=== PATIENT | female | born 1990 | race Caucasian/White ===

== ENCOUNTER 2017-02-22 15:11 | Emergency (ER) | payer BC, OTHER ==
--- NOTE | 2017-02-22 16:19 | EDM.PDOC ---
ED HISTORY OF PRESENT ILLNESS - General Chief Complaint: Respiratory Problem Stated Complaint: COUGHING Time Seen by Provider: 02/22/17 16:10 - History of Present Illness INITIAL COMMENTS - FREE TEXT/NARRATIVE: HISTORY AND PHYSICAL: History of present illness: Patient is a 26 y/o female with a history of asthma but rarely uses her inhaler presents with not feeling well and since she had a tooth extracted a week ago and complaining of dry cough spastic cough occasional wheezing sore throat and sinus congestion. She did not get her influenza shot this year and she does not have chest pain or shortness of breath but complains of some body aches especially with the coughing. No vomiting or diarrhea and no abdominal pain. Review of systems: As per history of present illness and below otherwise all systems reviewed and negative. Past medical history: As per history of present illness and as reviewed below otherwise noncontributory. Surgical history: As per history of present illness and as reviewed below otherwise noncontributory. Social history: No reported history of drug or alcohol abuse. Family history: As per history of present illness and as reviewed below otherwise noncontributory. Physical exam: General: Well-developed well-nourished female is nontoxic but has nasal quality to voice HEENT: Atraumatic, normocephalic, pupils reactive, negative for conjunctival pallor or scleral icterus, mucous membranes moist, throat clear there is no tonsillar swelling or exudate but there is posterior oropharyngeal erythema there is no cervical adenopathy or nuchal rigidity, neck supple, nontender, trachea midline. Lungs: Clear to auscultation, breath sounds equal bilaterally, chest nontender. No work of breathing wheezing or stridor appreciated Heart: S1S2, regular, negative for clicks, rubs, or JVD. Abdomen: Soft, nondistended, nontender. NABS Genitourinary: Deferred. Rectal: Deferred. Extremities: Atraumatic, negative for cords or calf pain. Neurovascular unremarkable. Neuro: Awake, alert, oriented. Cranial nerves II through XII unremarkable. Cerebellum unremarkable. Motor and sensory unremarkable throughout. Exam nonfocal. Diagnostics: Rapid strep influenza chest x-ray Therapeutics: Pt. deferred a duo neb Testing results were discussed with the patient and she requests an albuterol inhaler refill and we will also give her a spacer. Advise her to followup in the clinic with a provider and will give her prescriptions and she would prefer to fill them in the pharmacy tomorrow morning. I will give her prednisone Tessalon Perles and albuterol inhaler. We will give one dose of prednisone here Impression: Asthmatic bronchitis Definitive disposition and diagnosis as appropriate pending reevaluation and review of above. - Related Data Allergies/ADRs: Allergies Allergy/AdvReac Type Severity Reaction Status Date / Time No Known Allergies Allergy Verified 03/09/14 11:12 Home Meds: Home Meds Albuterol Sulfate [Proair Hfa] 8.5 gm IH 5XDAY PRN 02/22/17 [History] Amoxicillin 500 mg PO DAILY 02/22/17 [History] Amoxicillin/Clavulanate K [Augmentin 875 MG/125 MG] 1 tab PO Q12HR 02/22/17 [ History] Sertraline [Zoloft] 100 mg PO DAILY 02/22/17 [History] Past Medical History - Past Health History Medical/Surgical History: Denies Medical/Surgical History HEENT History: Reports: None Cardiovascular History: Reports: None Respiratory History: Reports: Asthma Gastrointestinal History: Reports: None Genitourinary History: Reports: None [employer] History: Reports: Other (see below) Other OB/BYN History: Relatives with Breast Cancer. Positive BRCA II Musculoskeletal History: Reports: None Neurological History: Reports: None Psychiatric History: Reports: Depression Endocrine/Metabolic History: Reports: None Hematologic History: Reports: None Immunologic History: Reports: None Oncologic (Cancer) History: Reports: None Other Oncologic History: Family members +BRCA II gene Dermatologic History: Reports: None - Infectious Disease History Infectious Disease History: Reports: None - Past Surgical History HEENT Surgical History: Reports: Other (see below) Other HEENT Surgeries/Procedures: Dental extraction Cardiovascular Surgical History: Reports: None Respiratory Surgical History: Reports: None GI Surgical History: Reports: None Female Surgical History: Reports: Breast biopsy Endocrine Surgical History: Reports: None Neurological Surgical History: Reports: None Musculoskeletal Surgical History: Reports: None Oncologic Surgical History: Reports: None Dermatological Surgical History: Reports: None Social & Family History - Family History Cardiac: Reports: Prior cardiac arrest Respiratory: Reports: Asthma Psychiatric: Reports: Depression Oncologic: Reports: Breast, Pancreatic - Tobacco Use Smoking Status *Q: Never Smoker Second Hand Smoke Exposure: No - Caffeine Use Caffeine Use: Reports: None - Recreational Drug Use Recreational Drug Use: No ED ROS GENERAL - Review of Systems Review Of Systems: ROS reveals no pertinent complaints other than HPI. ED EXAM, GENERAL - Physical Exam Exam: See Below (See dictation) Course - Vital Signs Last Recorded V/S: Last Vital Signs Temp 37.3 C 02/22/17 16:01 Pulse 88 02/22/17 16:01 Resp 16 02/22/17 16:01 BP 107/69 02/22/17 16:01 Pulse Ox 96 02/22/17 16:01 - Orders/Labs/Meds Orders: Active Orders 24 hr Category Date Time Status Chest 2V [CR] Stat Exams 02/22/17 16:16 Taken CULTURE STREP A CONFIRMATION [RM] Stat Lab 02/22/17 16:39 Results STREP SCRN A RAPID W CULT CONF [RM] Stat Lab 02/22/17 16:39 Results predniSONE Med 02/22/17 18:00 Once 60 mg PO ONETIME ONE Medication Orders Prednisone (Prednisone) 60 mg PO ONETIME ONE Stop: 02/22/17 18:01 Meds: Medications Generic Name Dose Route Start Last Admin Trade Name Shirley PRN Reason Stop Dose Admin Prednisone 60 mg 02/22/17 18:00 Prednisone PO 02/22/17 18:01 ONETIME ONE Departure - Departure Time of Disposition: 18:01 Disposition: Home, Self-Care 01 Condition: good Clinical Impression: Asthmatic bronchitis Qualifiers: Asthma severity: unspecified severity Asthma complication type: with acute exacerbation Qualified Code(s): J45.901 - Unspecified asthma with (acute) exacerbation Forms: ED Department Discharge Additional Instructions: The following information is given to patients seen in the emergency department who are being discharged to home. This information is to outline your options for follow-up care. We provide all patients seen in our emergency department with a follow-up referral. The need for follow-up, as well as the timing and circumstances, are variable depending upon the specifics of your emergency department visit. If you don't have a primary care physician on staff, we will provide you with a referral. We always advise you to contact your personal physician following an emergency department visit to inform them of the circumstance of the visit and for follow-up with them and/or the need for any referrals to a consulting specialist. The emergency department will also refer you to a specialist when appropriate. This referral assures that you have the opportunity for followup care with a specialist. All of these measure are taken in an effort to provide you with optimal care, which includes your followup. Under all circumstances we always encourage you to contact your private physician who remains a resource for coordinating your care. When calling for followup care, please make the office aware that this follow-up is from your recent emergency room visit. If for any reason you are refused follow-up, please contact the [facility] emergency department at and ask to speak to the emergency department charge nurse. [facility] Primary care- [place] [address] Push hydration use your inhaler with spacer and shown to today and please call and followup in the clinic with her provider in the next few days for reevaluation and care. Return to ER as needed as discussed. Take all the medications as prescribed - My Orders Last 24 Hours: My Active Orders 02/22/17 16:16 Chest 2V [CR] Stat 02/22/17 16:39 CULTURE STREP A CONFIRMATION [RM] Stat STREP SCRN A RAPID W CULT CONF [RM] Stat 02/22/17 18:00 predniSONE 60 mg PO ONETIME ONE - Assessment/Plan Last 24 Hours: My Active Orders 02/22/17 16:16 Chest 2V [CR] Stat 02/22/17 16:39 CULTURE STREP A CONFIRMATION [RM] Stat STREP SCRN A RAPID W CULT CONF [RM] Stat 02/22/17 18:00 predniSONE 60 mg PO ONETIME ONE
[2017-02-22] MEDS ORDERED: predniSONE 20 MG Tab PO ONE (18:00)
[2017-02-22 20:23] VITALS: BP 117/67
--- NOTE | 2017-02-23 19:05 | CR ---
EXAM DATE: 02/22/17 PATIENT'S AGE: 26 Patient: ELIAS SINCLAIR Facility: [place], [place] Site . Site : 1990 Study: XRay Chest [id number] 5:13:17 PM Ordering Physician: Jonn Connelly Final Report: INDICATION: Cough, shortness of breath. COMPARISON: none TECHNIQUE: Two view chest. FINDINGS: The lungs are clear. There is no evidence of pneumothorax. The heart, mediastinum and pulmonary vessels are of normal size. There is no evidence of pleural fluid. IMPRESSION: Negative chest. Dictated by Ren Unger MD @ Feb 22 2017 5:49PM (Electronic Signature) Report Signed by Proxy and Original Signed Document filed in the Medical Record. LETI
== END 2017-02-22 18:18 | disposition home or self-care (01) ==
LOC: MW.ED 15:11
DX: J45.901 Unspecified asthma with (acute) exacerbation (principal); F32.9 Major depressive disorder, single episode, unspecified; Z79.899 Other long term (current) drug therapy
CPT/HCPCS: 71020; 87081; 87804; 87880; 99283; A9270

== ENCOUNTER 2021-08-23 01:51 | Inpatient (IN) | payer OTHER ==
[2021-08-23] MEDS: Lactated Ringers 1,000 ML IV SCH ×2 (02:15→02:55)
[2021-08-23] MEDS ORDERED: Ampicillin 1 GM Vial ONE (02:21)
[2021-08-23] MEDS ORDERED: Carboprost Tromethamine 250 MCG/1 ML Amp IM PRN (02:30)
[2021-08-23] MEDS ORDERED: Sodium Chloride 0.9% 10 ML Syringe FLUSH PRN (02:30)
[2021-08-23] MEDS ORDERED: Nalbuphine 10 MG/1 ML Vial IVPUSH PRN (02:30)
[2021-08-23] MEDS ORDERED: Tranexamic Acid 1,000 MG in Sodium Chloride 0.9% 100 ML IV PRN (02:30)
[2021-08-23] MEDS ORDERED: Ondansetron 4 MG/2 ML SDV IVPUSH PRN (02:30)
[2021-08-23] MEDS ORDERED: Sodium Chloride 0.9% 2.5 ML Syringe FLUSH PRN (02:30)
[2021-08-23] MEDS ORDERED: Sodium Chloride 0.9% 10 ML SDV IV PRN (02:30)
[2021-08-23] MEDS ORDERED: Oxytocin/0.9 % Sodium Chloride 30 UNIT/500 ML BAG IV SCH (02:30)
[2021-08-23] MEDS ORDERED: Butorphanol 1 MG/ML SDV IVPUSH PRN (02:30)
[2021-08-23] MEDS ORDERED: Lidocaine 1% 50 ML MDV INJECT PRN (02:30)
[2021-08-23] MEDS ORDERED: Water For Irrigation,Sterile 1,000 ML Container IRR PRN (02:30)
[2021-08-23] MEDS ORDERED: Methylergonovine 0.2 MG/1 ML Amp IM PRN (02:30)
[2021-08-23] MEDS ORDERED: Misoprostol 200 MCG Tab PO PRN (02:30)
[2021-08-23] MEDS ORDERED: Ropivacaine HCl/PF 200 ML ONE (03:08)
[2021-08-23] MEDS ORDERED: Bupivacaine 0.25% 10 ML SDV ONE (03:09)
--- NOTE | 2021-08-23 04:01 | PCM.PREANE ---
Preanesthetic Assessment - Anesthesia/Transfusion/Family Hx Anesthesia History: Prior Anesthesia Without Reaction - Review of Systems General: No Symptoms Pulmonary: No Symptoms Cardiovascular: No Symptoms Gastrointestinal: No Symptoms Neurological: No Symptoms Other: Reports: None - Physical Assessment Height: 5 ft 10 in ASA Class: 2 Mental Status: Alert & Oriented x3 Airway Class: Mallampati = 2 Dentition: Reports: Normal Dentition Thyro-Mental Finger Breadths: 3 Mouth Opening Finger Breadths: 3 ROM/Head Extension: Full Lungs: Clear to Auscultation, Normal Respiratory Effort Cardiovascular: Regular Rate, Regular Rhythm - Lab Values: Laboratory Last Values WBC 8.42 K/uL (4.0-11.0) 08/23/21 02:15 RBC 3.89 M/uL (4.30-5.90) L 08/23/21 02:15 Hgb 11.5 g/dL (12.0-16.0) L 08/23/21 02:15 Hct 35.8 % (36.0-46.0) L 08/23/21 02:15 MCV 92.0 fL (80.0-98.0) 08/23/21 02:15 MCH 29.6 pg (27.0-32.0) 08/23/21 02:15 MCHC 32.1 g/dL (31.0-37.0) 08/23/21 02:15 RDW Std Deviation 49.9 fl (28.0-62.0) 08/23/21 02:15 RDW Coeff of Daniel 16 % (11.0-15.0) H 08/23/21 02:15 Plt Count 148 K/uL (150-400) L 08/23/21 02:15 MPV 11.90 fL (7.40-12.00) 08/23/21 02:15 SARS-CoV-2 RNA (AMY) NEGATIVE (NEGATIVE) 08/23/21 02:15 Blood Type O POSITIVE 08/23/21 02:15 Antibody Screen NEGATIVE 08/23/21 02:15 - Allergies Allergies/Adverse Reactions: Allergies Allergy/AdvReac Type Severity Reaction Status Date / Time No Known Allergies Allergy Verified 08/23/21 02:30 - Acknowledgements Anesthesia Type Planned: Epidural Pt an Appropriate Candidate for the Planned Anesthesia: Yes Alternatives and Risks of Anesthesia Discussed w Pt/Guardian: Yes Pt/Guardian Understands and Agrees with Anesthesia Plan: Yes PreAnesthesia Questionnaire - Past Health History Medical/Surgical History: Denies Medical/Surgical History HEENT History: Reports: None Cardiovascular History: Reports: None Respiratory History: Reports: Asthma Gastrointestinal History: Reports: None Genitourinary History: Reports: None 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 Dermatologic History: Reports: None - Infectious Disease History Infectious Disease History: Reports: Chicken Pox - Past Surgical History HEENT Surgical History: Reports: Other (See Below) Other HEENT Surgeries/Procedures: Dental extraction Cardiovascular Surgical History: Reports: None Respiratory Surgical History: Reports: None GI Surgical History: Reports: None Female Surgical History: Reports: Breast Biopsy Endocrine Surgical History: Reports: None Neurological Surgical History: Reports: None Musculoskeletal Surgical History: Reports: None Oncologic Surgical History: Reports: None Other Oncologic Surgeries/Procedures: + BRCII gene Dermatological Surgical History: Reports: None - HOME MEDS Home Medications: Home Meds Albuterol Sulfate [Proair Hfa] 8.5 gm IH 5XDAY PRN 02/22/17 [History] Amoxicillin 500 mg PO DAILY 02/22/17 [History] Amoxicillin/Clavulanate K [Augmentin 875 MG/125 MG] 1 tab PO Q12HR 02/22/17 [History] Sertraline [Zoloft] 100 mg PO DAILY 02/22/17 [History] - CURRENT (IN HOUSE) MEDS Current Meds: Current Medications Butorphanol Tartrate (Butorphanol 1 Mg/Ml Sdv) 1 mg IVPUSH Q1H PRN PRN Reason: Pain (severe 7-10) Carboprost Tromethamine (Carboprost Tromethamine 250 Mcg/1 Ml Amp) 250 mcg IM ASDIRECTED PRN PRN Reason: Post Hemorrhage Lactated Ringer's (Ringers, Lactated) 1,000 mls @ 150 mls/hr IV ASDIRECTED ИРИНА Last Admin: 08/23/21 02:55 Dose: 150 mls/hr Documented by: Oxytocin/Sodium Chloride (Oxytocin 30 Unit In Ns 0.9% 500 Ml Premix) 30 unit in 500 mls @ 500 mls/hr IV TITRATE ИРИНА Tranexamic Acid 1,000 mg/ (Sodium Chloride) 110 mls @ 660 mls/hr IV ONETIME PRN PRN Reason: Bleeding Lidocaine HCl (Lidocaine 1% 50 Ml Mdv) 50 ml INJECT ONETIME PRN PRN Reason: Laceration repair Methylergonovine Maleate (Methylergonovine 0.2 Mg/1 Ml Amp) 0.2 mg IM ASDIRECTED PRN PRN Reason: Post Hemorrhage Misoprostol (Misoprostol 200 Mcg Tab) 200 mcg PO ONETIME PRN PRN Reason: Post Hemorrhage Nalbuphine HCl (Nalbuphine 10 Mg/1 Ml Vial) 10 mg IVPUSH Q1H PRN PRN Reason: Pain (severe 7-10) Ondansetron HCl (Ondansetron 4 Mg/2 Ml Sdv) 4 mg IVPUSH Q4H PRN PRN Reason: Nausea/Vomiting Sodium Chloride (Sodium Chloride 0.9% 10 Ml Syringe) 10 ml FLUSH ASDIRECTED PRN PRN Reason: Keep Vein Open Sodium Chloride (Sodium Chloride 0.9% 2.5 Ml Syringe) 2.5 ml FLUSH ASDIRECTED PRN PRN Reason: Keep Vein Open Sodium Chloride (Sodium Chloride 0.9% 10 Ml Sdv) 10 ml IV ASDIRECTED PRN PRN Reason: IV Use Sterile Water (Water For Irrigation,Sterile 1,000 Ml Container) 1,000 ml IRR ASDIRECTED PRN PRN Reason: delivery Discontinued Medications Ampicillin Sodium (Ampicillin 1 Gm Vial) Confirm Administered Dose 2 gm .ROUTE .[employer]-MED ONE Stop: 08/23/21 02:22 Last Admin: 08/23/21 02:15 Dose: 2 gm Documented by: Bupivacaine HCl (Bupivacaine 0.25% 10 Ml Sdv) Confirm Administered Dose 20 ml .ROUTE .STK-MED ONE Stop: 08/23/21 03:10 Ropivacaine (Naropin 0.2%) Confirm Administered Dose 200 mls @ as directed .ROUTE .[employer]-MED ONE Stop: 08/23/21 03:09
[2021-08-23] MEDS ORDERED: ePHEDrine 50 MG/ML SDV IVPUSH PRN (04:05)
--- NOTE | 2021-08-23 04:05 | PCM.SN.2 ---
Time Documentation - Pre-Procedure Checklist Attending Provider Aware: Yes Chart Reviewed: Yes Consent Signed: Yes Labs Reviewed: Yes VS/FHR Reviewed: Yes Patient Identification Confirmation Method: Reports: ID Band Visual, Verbal Patient Pt an Appropriate Candidate for the Planned Anesthesia: Yes Alternatives and Risks of Anesthesia Discussed w Pt/Guardian: Yes - Procedure Procedure Start Date: 08/23/21 Procedure Start Time: 03:[address]: Reports: Blood Pressure, Heart Rate, SPO2 Functional IV: Yes Safety Measures: Reports: Patient Identified, Procedure Verified, Site Verified, Procedure Time Out Patient Position: Reports: Sitting Prep: Reports: Betadine x3, Sterile Drape Local Anesthetic: Reports: Intradermal Wheal w Lidocaine 1% Regional Placement Level: Reports: L4-5 Needle: Reports: 17 g Touhy Approach: Reports: Midline Technique: Reports: MIL Plastic Syringe (MIL to saline) Parasthesia: Reports: None Fluid Obtained: Reports: None Test Dose Time: 03:19 Test Dose Medication: Reports: Lidocaine 1.5% w Epinephrine 1:200,000 Test Dose Response: Reports: Negative Loading Dose Time: 03:22 Loading Dose Medication: Bupivacaine 0.25% PF 15 ml in 3 separate doses 5 min apart Loading Dose Patient Position: semi-fowlers with USMAN Continuous Infusion Start Time: 03:33 Continuous Infusion Medication: Ropivacaine 0.2% Continuous Infusion Rate: 16 ml/hr Continuous Infusion PCS Bolus Option: 4 ml q 15 min Continuous Infusion Lockout Dose (cc/hr): 40 Patient Position Post Placement: Reports: Semi-fowlers/USMAN Level Achieved: T-10 VS and FHR Monitored in Unit Post Placement: Yes Procedure End Date: 08/23/21 Procedure End Time: 04:06 Procedure Comment: Pt. tolerated procedure well.
--- NOTE | 2021-08-23 04:05 | PCM.POSTAN ---
POST ANESTHESIA ASSESSMENT - MENTAL STATUS Mental Status: Alert, Oriented - RESPIRATORY Respiratory Status: Respiratory Rate WNL, Airway Patent, O2 Saturation Stable - CARDIOVASCULAR CV Status: Pulse Rate WNL, Blood Pressure Stable - GASTROINTESTINAL GI Status: No Symptoms - POST OP HYDRATION Hydration Status: Adequate & Stable
[2021-08-23] MEDS ORDERED: Ropivacaine/PF 400 MG/200 ML PCA EPIDUR SCH (04:15)
--- NOTE | 2021-08-23 04:59 | PCM.LDHP ---
L&D History of Present Illness - General Date of Service: 08/23/21 Admit Problem/Dx: Patient Status Order with Admit Dx/Problem 08/23/21 02:30 Patient Status [ADT] Routine Admission Diagnosis/Problem Admission Diagnosis/Problem 08/23/21 04:54 presenting to labor and delivery in active labor at 39 2/7 weeks ([place]: 08/28/21 by LMP and early ultrasound). Upon presentation, requesting epidural; SVE 6 cm per nurse report. O+, Rubella immune, GBS+ Source of Information: Patient History Limitations: Reports: No Limitations - Related Data Allergies/Adverse Reactions: Allergies Allergy/AdvReac Type Severity Reaction Status Date / Time No Known Allergies Allergy Verified 08/23/21 02:30 Home Medications: Home Meds Albuterol Sulfate [Proair Hfa] 8.5 gm IH 5XDAY PRN 02/22/17 [History] Amoxicillin 500 mg PO DAILY 02/22/17 [History] Amoxicillin/Clavulanate K [Augmentin 875 MG/125 MG] 1 tab PO Q12HR 02/22/17 [History] Sertraline [Zoloft] 100 mg PO DAILY 02/22/17 [History] Past Medical History - Past Health History Medical/Surgical History: Denies Medical/Surgical History HEENT History: Reports: None Cardiovascular History: Reports: None Respiratory History: Reports: Asthma Gastrointestinal History: Reports: None Genitourinary History: Reports: None [employer] DEVELOPER History: Reports: , Other (See Below) Other OB/BYN History: Relatives with Breast Cancer. 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 Dermatologic History: Reports: None - Infectious Disease History Infectious Disease History: Reports: Chicken Pox - Past Surgical History HEENT Surgical History: Reports: Other (See Below) Other HEENT Surgeries/Procedures: Dental extraction Cardiovascular Surgical History: Reports: None Respiratory Surgical History: Reports: None GI Surgical History: Reports: None Female Surgical History: Reports: Breast Biopsy Endocrine Surgical History: Reports: None Neurological Surgical History: Reports: None Musculoskeletal Surgical History: Reports: None Oncologic Surgical History: Reports: None Other Oncologic Surgeries/Procedures: + BRCII gene Dermatological Surgical History: Reports: None Social & Family History - Family History Cardiac: Reports: Prior Cardiac Arrest Respiratory: Reports: Asthma OBGYN: Reports: Psychiatric: Reports: Depression Oncologic: Reports: Breast, Pancreatic - Caffeine Use Caffeine Use: Reports: None H&P Review of Systems - Review of Systems: Review Of Systems: See Below General: Reports: No Symptoms HEENT: Reports: No Symptoms Pulmonary: Reports: No Symptoms Cardiovascular: Reports: No Symptoms Gastrointestinal: Reports: No Symptoms Genitourinary: Reports: No Symptoms Musculoskeletal: Reports: No Symptoms Skin: Reports: No Symptoms Psychiatric: Reports: No Symptoms Neurological: Reports: No Symptoms Hematologic/Lymphatic: Reports: No Symptoms Immunologic: Reports: No Symptoms L&D Exam - Exam Exam: See Below - OB Specific Contraction Intensity: Moderate Movement: Active Heart Tones: Present Heart Rate (FHR) Variability: Moderate (6-25 bpm) Presentation: Vertex - Lee Score Lee Score Cervix Position: Midposition Lee Score Consistency: Soft Lee Score Dilation: > 5 cm - Exam General: Alert, Oriented, Cooperative Lungs: Normal Respiratory Effort Cardiovascular: Regular Rate, Regular Rhythm GI/Abdominal Exam: Soft, Non-Tender Rectal Exam: Deferred Genitourinary: Deferred Extremities: Normal Inspection, Normal Range of Motion, Non-Tender, Normal Capillary Refill Skin: Warm, Dry, Intact Neurological: Normal Speech, Normal Tone, Sensation Intact Psychiatric: Alert, Normal Affect, Normal Mood - Patient Data Lab Results Last 24 hrs: Laboratory Results - last 24 hr 08/23/21 08/23/21 08/23/21 Range/Units 02:15 02:15 02:15 WBC 8.42 (4.0-11.0) K/uL RBC 3.89 L (4.30-5.90) M/uL Hgb 11.5 L (12.0-16.0) g/dL Hct 35.8 L (36.0-46.0) % MCV 92.0 (80.0-98.0) fL MCH 29.6 (27.0-32.0) pg MCHC 32.1 (31.0-37.0) g/dL RDW Std Deviation 49.9 (28.0-62.0) fl RDW Coeff of Daniel 16 H (11.0-15.0) % Plt Count 148 L (150-400) K/uL MPV 11.90 (7.40-12.00) fL SARS-CoV-2 RNA (AMY) NEGATIVE (NEGATIVE) Blood Type O POSITIVE Antibody Screen NEGATIVE Result Diagrams: 08/23/21 02:15 - Problem List (1) Supervision of normal IUP (intrauterine ) in multigravida SNOMED Code(s): 297941464, 019342465, 264222921 ICD Code: Z34.80 - ENCOUNTER FOR SUPRVSN OF NORMAL , UNSP TRIMESTER Status: Acute Priority: High Current Visit: Yes Qualifiers: Trimester: third trimester Qualified Code(s): Z34.83 - Encounter for supervision of other normal , third trimester Problem List Initiated/Reviewed/Updated: Yes Orders Last 24hrs: Active Orders 24 hr Category Date Time Status Patient Status [ADT] Routine ADT 08/23/21 02:30 Active Communication Order [RC] PRN Care 08/23/21 04:05 Active Heart Tones [RC] CONTINUOUS Care 08/23/21 02:30 Active Non Stress Test [RC] PER UNIT ROUTINE Care 08/23/21 02:30 Active May Shower [RC] ASDIRECTED Care 08/23/21 02:30 Active Notify Provider [RC] PRN Care 08/23/21 02:30 Active Up ad Rosana [RC] ASDIRECTED Care 08/23/21 02:30 Active Vaginal Exam [RC] PRN Care 08/23/21 02:30 Active Vital Signs [RC] PER UNIT ROUTINE Care 08/23/21 02:30 Active RPR (SYPHILIS SERO) W/ RFLX [REF] Routine Lab 08/23/21 02:15 Received Butorphanol [Stadol] Med 08/23/21 02:30 Active 1 mg IVPUSH Q1H PRN Carboprost Tromethamine [Hemabate DS] Med 08/23/21 02:30 Active 250 mcg IM ASDIRECTED PRN Lactated Ringers [Ringers, Lactated] 1,000 ml Med 08/23/21 02:30 Active IV ASDIRECTED Lidocaine 1% [Xylocaine 1%] Med 08/23/21 02:30 Active 50 ml INJECT ONETIME PRN Methylergonovine [Methergine] Med 08/23/21 02:30 Active 0.2 mg IM ASDIRECTED PRN Nalbuphine [Nubain] Med 08/23/21 02:30 Active 10 mg IVPUSH Q1H PRN Ondansetron [Zofran] Med 08/23/21 02:30 Active 4 mg IVPUSH Q4H PRN Oxytocin/0.9 % Sodium Chloride [Oxytocin 30 Unit in NS Med 08/23/21 02:30 Active 0.9% 500 ML Premix] 30 unit in 500 ml IV TITRATE Phenylephrine HCl In 0.9% NaCl [Phenylephrine 1 MG/10 Med 08/23/21 04:05 Active ML-NS] 0.1 mg IVPUSH Q1M PRN Ropivacaine HCl/PF [Ropivacaine 0.2% TREASURY ASSISTANT 400 MG in 200 Med 08/23/21 04:15 Active ML] 400 mg EPIDUR ASDIRECTED Sodium Chloride 0.9% [Normal Saline] Med 08/23/21 02:30 Active 10 ml IV ASDIRECTED PRN Sodium Chloride 0.9% [Saline Flush] Med 08/23/21 02:30 Active 10 ml FLUSH ASDIRECTED PRN Sodium Chloride 0.9% [Saline Flush] Med 08/23/21 02:30 Active 2.5 ml FLUSH ASDIRECTED PRN Tranexamic Acid [Cyklokapron] 1,000 mg Med 08/23/21 02:30 Active Sodium Chloride 0.9% [Normal Saline] 100 ml IV ONETIME Water For Irrigation,Sterile [Sterile Water for Med 08/23/21 02:30 Active Irrigation] 1,000 ml IRR ASDIRECTED PRN ePHEDrine [ePHEDrine sulfate] Med 08/23/21 04:05 Active 10 mg IVPUSH Q1M PRN miSOPROStoL [Cytotec] Med 08/23/21 02:30 Active 200 mcg PO ONETIME PRN Scalp Electrode [WOMSER] Per Unit Routine Oth 08/23/21 02:30 Ordered Peripheral IV Insertion Adult [OM.PC] Routine Oth 08/23/21 02:30 Ordered Resuscitation Status Routine Resus Stat 08/23/21 02:30 Ordered Medication Orders Butorphanol Tartrate (Butorphanol 1 Mg/Ml Sdv) 1 mg IVPUSH Q1H PRN PRN Reason: Pain (severe 7-10) Carboprost Tromethamine (Carboprost Tromethamine 250 Mcg/1 Ml Amp) 250 mcg IM ASDIRECTED PRN PRN Reason: Post Hemorrhage Ephedrine Sulfate (Ephedrine 50 Mg/Ml Sdv) 10 mg IVPUSH Q1M PRN PRN Reason: Hypotension Lactated Ringer's (Ringers, Lactated) 1,000 mls @ 150 mls/hr IV ASDIRECTED [facility] Last Admin: 08/23/21 02:55 Dose: 150 mls/hr Documented by: Infusion: 08/23/21 02:55 Dose: 150 mls/hr Documented by: Admin: 08/23/21 02:15 Dose: 150 mls/hr Documented by: SONA Oxytocin/Sodium Chloride (Oxytocin 30 Unit In Ns 0.9% 500 Ml Premix) 30 unit in 500 mls @ 500 mls/hr IV TITRATE [facility] Tranexamic Acid 1,000 mg/ (Sodium Chloride) 110 mls @ 660 mls/hr IV ONETIME PRN PRN Reason: Bleeding Lidocaine HCl (Lidocaine 1% 50 Ml Mdv) 50 ml INJECT ONETIME PRN PRN Reason: Laceration repair Methylergonovine Maleate (Methylergonovine 0.2 Mg/1 Ml Amp) 0.2 mg IM ASDIRECTED PRN PRN Reason: Post Hemorrhage Miscellaneous Medication (Phenylephrine Hcl In 0.9% Nacl 1 Mg/10 Ml Syringe) 0.1 mg IVPUSH Q1M PRN PRN Reason: Hypotension Misoprostol (Misoprostol 200 Mcg Tab) 200 mcg PO ONETIME PRN PRN Reason: Post Hemorrhage Nalbuphine HCl (Nalbuphine 10 Mg/1 Ml Vial) 10 mg IVPUSH Q1H PRN PRN Reason: Pain (severe 7-10) Ondansetron HCl (Ondansetron 4 Mg/2 Ml Sdv) 4 mg IVPUSH Q4H PRN PRN Reason: Nausea/Vomiting Ropivacaine (Ropivacaine/Pf 400 Mg/200 Ml Window Installation Subcontractor) 400 mg EPIDUR ASDIRECTED [facility] Sodium Chloride (Sodium Chloride 0.9% 10 Ml Syringe) 10 ml FLUSH ASDIRECTED PRN PRN Reason: Keep Vein Open Sodium Chloride (Sodium Chloride 0.9% 2.5 Ml Syringe) 2.5 ml FLUSH ASDIRECTED PRN PRN Reason: Keep Vein Open Sodium Chloride (Sodium Chloride 0.9% 10 Ml Sdv) 10 ml IV ASDIRECTED PRN PRN Reason: IV Use Sterile Water (Water For Irrigation,Sterile 1,000 Ml Container) 1,000 ml IRR ASDIRECTED PRN PRN Reason: delivery Assessment/Plan Comment:: Admit A: presenting to labor and delivery in active labor at 39 2/7 weeks ([place]: 08/28/21 by LMP and early ultrasound). Upon presentation, requesting epidural; SVE 6 cm per nurse report. O+, Rubella immune, GBS+ P: Anticipate ; epidural PRN; Dr. Lema updated.
--- NOTE | 2021-08-23 05:08 | PCM.DEL ---
L & D Note - General Info Date of Service: 08/23/21 Mother's Due Date: 08/28/21 - Delivery Note Labor: Spontaneous Delivery Outcome: Livebirth Infant Delivery Method: Spontaneous Vaginal Delivery-Single Presentation: Vertex Nuchal Cord: None Anesthesia Type: Epidural Amniotic Fluid Description: Clear Laceration: Labial Suture size: 4-0 Placenta: Intact, Spontaneous Cord: 3 Vessels Estimated Blood Loss: 200 Score 1 min: 8 Score 5 min: 9 Second Stage Interventions: Reports: Second Nurse Assessed Progress of Descent, Second Nurse Reviewed Contraction Pattern, Second Nurse Reviewed Heart Tones, Encouragement Given, Pushing Effectively, Pushing, Pulls Own Legs Back Delivery Comments (Free Text/Narrative):: viable female; AROM immediately prior to delivery; clear fluid; epidural for pain relief; head delivered with good pushing; shoulders and body followed easily after; baby immediately to mom's abdomen [id number] for assessment; APGARs 8/9; cord doubly clamped after cessation of pulsing; cut by this provider; placenta delivered grossly intact, josh, 3VC; EBL 200 mL; pitocin to IVF; small left-sided labial laceration repaired with 4-0 vicryl; mom and baby left in stable condition with nurse at bedside for assessment. Weight: 8 lb 6 oz - General Info Date of Service: 08/23/21 Admission Dx/Problem (Free Text): Patient Status Order with Admit Dx/Problem 08/23/21 02:30 Patient Status [ADT] Routine Admission Diagnosis/Problem Admission Diagnosis/Problem 08/23/21 04:54 presenting to labor and delivery in active labor at 39 2/7 weeks ([place]: 08/28/21 by LMP and early ultrasound). Upon presentation, requesting epidural; SVE 6 cm per nurse report. O+, Rubella immune, GBS+ Functional Status: Reports: Pain Controlled - Review of Systems General: Reports: No Symptoms HEENT: Reports: No Symptoms Pulmonary: Reports: No Symptoms Cardiovascular: Reports: No Symptoms Gastrointestinal: Reports: No Symptoms Genitourinary: Reports: No Symptoms Musculoskeletal: Reports: No Symptoms Skin: Reports: No Symptoms Neurological: Reports: No Symptoms Psychiatric: Reports: No Symptoms - Patient Data Lab Results Last 24 Hours: Laboratory Results - last 24 hr 08/23/21 08/23/21 08/23/21 Range/Units 02:15 02:15 02:15 WBC 8.42 (4.0-11.0) K/uL RBC 3.89 L (4.30-5.90) M/uL Hgb 11.5 L (12.0-16.0) g/dL Hct 35.8 L (36.0-46.0) % MCV 92.0 (80.0-98.0) fL MCH 29.6 (27.0-32.0) pg MCHC 32.1 (31.0-37.0) g/dL RDW Std Deviation 49.9 (28.0-62.0) fl RDW Coeff of Daniel 16 H (11.0-15.0) % Plt Count 148 L (150-400) K/uL MPV 11.90 (7.40-12.00) fL SARS-CoV-2 RNA (AMY) NEGATIVE (NEGATIVE) Blood Type O POSITIVE Antibody Screen NEGATIVE Med Orders - Current: Current Medications Butorphanol Tartrate (Butorphanol 1 Mg/Ml Sdv) 1 mg IVPUSH Q1H PRN PRN Reason: Pain (severe 7-10) Carboprost Tromethamine (Carboprost Tromethamine 250 Mcg/1 Ml Amp) 250 mcg IM ASDIRECTED PRN PRN Reason: Post Hemorrhage Ephedrine Sulfate (Ephedrine 50 Mg/Ml Sdv) 10 mg IVPUSH Q1M PRN PRN Reason: Hypotension Lactated Ringer's (Ringers, Lactated) 1,000 mls @ 150 mls/hr IV ASDIRECTED [facility] Last Admin: 08/23/21 02:55 Dose: 150 mls/hr Documented by: Oxytocin/Sodium Chloride (Oxytocin 30 Unit In Ns 0.9% 500 Ml Premix) 30 unit in 500 mls @ 500 mls/hr IV TITRATE [facility] Last Admin: 08/23/21 04:35 Dose: 999 mls/hr Documented by: Tranexamic Acid 1,000 mg/ (Sodium Chloride) 110 mls @ 660 mls/hr IV ONETIME PRN PRN Reason: Bleeding Lidocaine HCl (Lidocaine 1% 50 Ml Mdv) 50 ml INJECT ONETIME PRN PRN Reason: Laceration repair Methylergonovine Maleate (Methylergonovine 0.2 Mg/1 Ml Amp) 0.2 mg IM ASDIRECTED PRN PRN Reason: Post Hemorrhage Miscellaneous Medication (Phenylephrine Hcl In 0.9% Nacl 1 Mg/10 Ml Syringe) 0.1 mg IVPUSH Q1M PRN PRN Reason: Hypotension Misoprostol (Misoprostol 200 Mcg Tab) 200 mcg PO ONETIME PRN PRN Reason: Post Hemorrhage Nalbuphine HCl (Nalbuphine 10 Mg/1 Ml Vial) 10 mg IVPUSH Q1H PRN PRN Reason: Pain (severe 7-10) Ondansetron HCl (Ondansetron 4 Mg/2 Ml Sdv) 4 mg IVPUSH Q4H PRN PRN Reason: Nausea/Vomiting Ropivacaine (Ropivacaine/Pf 400 Mg/200 Ml Solvent Recoverer) 400 mg EPIDUR ASDIRECTED [facility] Sodium Chloride (Sodium Chloride 0.9% 10 Ml Syringe) 10 ml FLUSH ASDIRECTED PRN PRN Reason: Keep Vein Open Sodium Chloride (Sodium Chloride 0.9% 2.5 Ml Syringe) 2.5 ml FLUSH ASDIRECTED PRN PRN Reason: Keep Vein Open Sodium Chloride (Sodium Chloride 0.9% 10 Ml Sdv) 10 ml IV ASDIRECTED PRN PRN Reason: IV Use Sterile Water (Water For Irrigation,Sterile 1,000 Ml Container) 1,000 ml IRR ASDIRECTED PRN PRN Reason: delivery Discontinued Medications Ampicillin Sodium (Ampicillin 1 Gm Vial) Confirm Administered Dose 2 gm .ROUTE .STK-MED ONE Stop: 08/23/21 02:22 Last Admin: 08/23/21 02:15 Dose: 2 gm Documented by: Bupivacaine HCl (Bupivacaine 0.25% 10 Ml Sdv) Confirm Administered Dose 20 ml .ROUTE .STK-MED ONE Stop: 08/23/21 03:10 Ropivacaine (Naropin 0.2%) Confirm Administered Dose 200 mls @ as directed .ROUTE .STK-MED ONE Stop: 08/23/21 03:09 - Exam General: Alert, Oriented, Cooperative, No Acute Distress Lungs: Normal Respiratory Effort Cardiovascular: Regular Rate, Regular Rhythm GI/Abdominal Exam: Soft, Non-Tender (Female) Exam: Deferred Back Exam: Normal Inspection Extremities: Normal Inspection, Normal Capillary Refill Skin: Warm, Dry, Intact Neurological: No New Focal Deficit, Normal Speech Psy/Mental Status: Alert, Normal Affect, Normal Mood - Problem List & Annotations (1) Supervision of normal IUP (intrauterine ) in multigravida SNOMED Code(s): 940994282, 527489842, 432463674 Code(s): Z34.80 - ENCOUNTER FOR SUPRVSN OF NORMAL , UNSP TRIMESTER Status: Acute Priority: High Current Visit: Yes Qualifiers: Trimester: third trimester Qualified Code(s): Z34.83 - Encounter for supervision of other normal , third trimester (2) (spontaneous vaginal delivery) SNOMED Code(s): 669469476 Code(s): O80 - ENCOUNTER FOR FULL-TERM UNCOMPLICATED DELIVERY Status: Acute Priority: High Current Visit: Yes - Problem List Review Problem List Initiated/Reviewed/Updated: Yes - Plan Plan:: Admit A: presenting to labor and delivery in active labor at 39 2/7 weeks ([place]: 08/28/21 by LMP and early ultrasound). Upon presentation, requesting epidural; SVE 6 cm per nurse report. O+, Rubella immune, GBS+ P: Anticipate ; epidural PRN; Dr. Lema updated. Deliver A: viable female; AROM immediately prior to delivery; clear fluid; epidural for pain relief; head delivered with good pushing; shoulders and body followed easily after; baby immediately to mom's abdomen [id number] for assessment; APGARs 8/9; cord doubly clamped after cessation of pulsing; cut by this provider; placenta delivered grossly intact, moreno, 3VC; EBL 200 mL; pitocin to IVF; small left-sided labial laceration repaired with 4-0 vicryl; mom and baby left in stable condition with nurse at bedside for assessment. Weight: 8 lb 6 oz P: Routine plan of care; Dr. Lema updated.
[2021-08-23] MEDS ORDERED: Acetaminophen 500 MG Tab PO PRN (05:10)
[2021-08-23] MEDS ORDERED: Bisacodyl 10 MG Supp RECTAL PRN (05:10)
[2021-08-23] MEDS ORDERED: oxyCODONE 5 MG Tab PO PRN (05:10)
[2021-08-23] MEDS ORDERED: Lanolin 100% Cream 7 GM Tube TOP PRN (05:10)
[2021-08-23] MEDS ORDERED: Benzocaine/Menthol 20%-0.5% Spray 78 GM Cannister TOP PRN (05:10)
[2021-08-23] MEDS ORDERED: Ibuprofen 400 MG Tab PO PRN (05:10)
[2021-08-23] MEDS ORDERED: Witch Hazel Medicated Pads 40/Jar TOP PRN (05:10)
[2021-08-23] MEDS: Ibuprofen 800 MG Tab PO PRN ×3 (06:06→20:12)
[2021-08-23] MEDS: Acetaminophen 500 MG Tab PO PRN ×2 (06:07→12:08)
[2021-08-23] MEDS: Docusate Sodium 100 MG Cap PO PRN (06:07)
--- NOTE | 2021-08-23 07:57 | PCM48HPAN ---
Post Anesthesia Note - EVALUATION WITHIN 48HRS OF ANESTHETIC Vital Signs in Normal Range: Yes Patient Participated in Evaluation: Yes Respiratory Function Stable: Yes Airway Patent: Yes Cardiovascular Function Stable: Yes Hydration Status Stable: Yes Pain Control Satisfactory: Yes Nausea and Vomiting Control Satisfactory: Yes Mental Status Recovered: Yes
[2021-08-24 07:59] VITALS: BP 112/67; PULSE 81
[2021-08-24] MEDS: Acetaminophen 500 MG Tab PO PRN (08:31)
[2021-08-24] MEDS: Docusate Sodium 100 MG Cap PO PRN (08:32)
--- NOTE | 2021-08-24 10:24 | PCM.PNPP ---
- General Info Date of Service: 08/24/21 Functional Status: Reports: Pain Controlled - Review of Systems General: Reports: No Symptoms HEENT: Reports: No Symptoms Pulmonary: Reports: No Symptoms Cardiovascular: Reports: No Symptoms Gastrointestinal: Reports: No Symptoms Genitourinary: Reports: No Symptoms Musculoskeletal: Reports: No Symptoms Skin: Reports: No Symptoms Neurological: Reports: No Symptoms Psychiatric: Reports: No Symptoms - General Info Date of Service: 08/24/21 - Patient Data Vital Signs - Most Recent: Last Vital Signs Temp 36.5 C 08/24/21 07:59 Pulse 81 08/24/21 07:59 Resp 18 08/24/21 07:59 BP 112/67 08/24/21 07:59 Pulse Ox 94 L 08/24/21 07:59 Weight - Most Recent: 89.811 kg Lab Results - Last 24 Hours: Laboratory Results - last 24 hr 08/24/21 Range/Units 06:22 Hgb 11.0 L (12.0-16.0) g/dL Hct 34.0 L (36.0-46.0) % Med Orders - Current: Current Medications Acetaminophen (Acetaminophen 500 Mg Tab) 500 mg PO Q4H PRN PRN Reason: Pain (mild 1-3) Acetaminophen (Acetaminophen 500 Mg Tab) 1,000 mg PO Q4H PRN PRN Reason: Pain (mild 1-3) Last Admin: 08/24/21 08:31 Dose: 1,000 mg Documented by: Benzocaine/Menthol (Benzocaine/Menthol 20%-0.5% [place] 78 Gm Cannister) 78 gm TOP ASDIRECTED PRN PRN Reason: Perineal Comfort Measure Last Admin: 08/23/21 06:06 Dose: 1 spr Documented by: Bisacodyl (Bisacodyl 10 Mg Supp) 10 mg RECTAL ONETIME PRN PRN Reason: Constipation Docusate Sodium (Docusate Sodium 100 Mg Cap) 100 mg PO Q12H PRN PRN Reason: Constipation Last Admin: 08/24/21 08:32 Dose: 100 mg Documented by: Emollient Ointment (Lanolin 100% Cream 7 Gm Tube) 0 gm TOP ASDIRECTED PRN PRN Reason: Sore Nipples Last Admin: 08/23/21 07:51 Dose: 1 tube Documented by: Ibuprofen (Ibuprofen 400 Mg Tab) 400 mg PO Q4H PRN PRN Reason: Pain (mild 1-3) Ibuprofen (Ibuprofen 800 Mg Tab) 800 mg PO Q6H PRN PRN Reason: Cramping Last Admin: 08/23/21 20:12 Dose: 800 mg Documented by: Oxycodone HCl (Oxycodone 5 Mg Tab) 5 mg PO Q2H PRN PRN Reason: Pain (severe 7-10) Witch Lucy (Witch Lucy Medicated Pads 40/Jar) 1 pad TOP ASDIRECTED PRN PRN Reason: comfort care Last Admin: 08/23/21 06:05 Dose: 1 pad Documented by: Discontinued Medications Ampicillin Sodium (Ampicillin 1 Gm Vial) Confirm Administered Dose 2 gm .ROUTE .Smore-Adyuka ONE Stop: 08/23/21 02:22 Last Admin: 08/23/21 02:15 Dose: 2 gm Documented by: Bupivacaine HCl (Bupivacaine 0.25% 10 Ml Sdv) Confirm Administered Dose 20 ml .ROUTE .Smore-MED ONE Stop: 08/23/21 03:10 Butorphanol Tartrate (Butorphanol 1 Mg/Ml Sdv) 1 mg IVPUSH Q1H PRN PRN Reason: Pain (severe 7-10) Carboprost Tromethamine (Carboprost Tromethamine 250 Mcg/1 Ml Amp) 250 mcg IM ASDIRECTED PRN PRN Reason: Post Hemorrhage Ephedrine Sulfate (Ephedrine 50 Mg/Ml Sdv) 10 mg IVPUSH Q1M PRN PRN Reason: Hypotension Lactated Ringer's (Ringers, Lactated) 1,000 mls @ 150 mls/hr IV ASDIRECTED [facility] Last Admin: 08/23/21 02:55 Dose: 150 mls/hr Documented by: Oxytocin/Sodium Chloride (Oxytocin 30 Unit In Ns 0.9% 500 Ml Premix) 30 unit in 500 mls @ 500 mls/hr IV TITRATE [facility] Last Admin: 08/23/21 04:35 Dose: 999 mls/hr Documented by: Tranexamic Acid 1,000 mg/ (Sodium Chloride) 110 mls @ 660 mls/hr IV ONETIME PRN PRN Reason: Bleeding Ropivacaine (Naropin 0.2%) Confirm Administered Dose 200 mls @ as directed .ROUTE .Smore-MED ONE Stop: 08/23/21 03:09 Lidocaine HCl (Lidocaine 1% 50 Ml Mdv) 50 ml INJECT ONETIME PRN PRN Reason: Laceration repair Methylergonovine Maleate (Methylergonovine 0.2 Mg/1 Ml Amp) 0.2 mg IM ASDIRECTED PRN PRN Reason: Post Hemorrhage Miscellaneous Medication (Phenylephrine Hcl In 0.9% Nacl 1 Mg/10 Ml Syringe) 0.1 mg IVPUSH Q1M PRN PRN Reason: Hypotension Misoprostol (Misoprostol 200 Mcg Tab) 200 mcg PO ONETIME PRN PRN Reason: Post Hemorrhage Nalbuphine HCl (Nalbuphine 10 Mg/1 Ml Vial) 10 mg IVPUSH Q1H PRN PRN Reason: Pain (severe 7-10) Ondansetron HCl (Ondansetron 4 Mg/2 Ml Sdv) 4 mg IVPUSH Q4H PRN PRN Reason: Nausea/Vomiting Ropivacaine (Ropivacaine/Pf 400 Mg/200 Ml Core Dropper) 400 mg EPIDUR ASDIRECTED [facility] Sodium Chloride (Sodium Chloride 0.9% 10 Ml Syringe) 10 ml FLUSH ASDIRECTED PRN PRN Reason: Keep Vein Open Sodium Chloride (Sodium Chloride 0.9% 2.5 Ml Syringe) 2.5 ml FLUSH ASDIRECTED P RN PRN Reason: Keep Vein Open Sodium Chloride (Sodium Chloride 0.9% 10 Ml Sdv) 10 ml IV ASDIRECTED PRN PRN Reason: IV Use Sterile Water (Water For Irrigation,Sterile 1,000 Ml Container) 1,000 ml IRR ASDIRECTED PRN PRN Reason: delivery - Infant Interaction Disposition, : in Room with Family Interaction: Holding Feeding: Attempted ; Nursed Fair/Poor Support Person: - Recovery Exam Fundal Tone: Firm Fundal Level: At Umbilicus Fundal Placement: Right Lochia Amount: Scant Lochia Color: Rubra/Red Perineum Description: Intact, Minimal Bruising/Swelling Other Perinuem Description: Left labial laceration repaired Bladder Status: Voiding Urinary Elimination: Voided Other Urinary Elimination, : Due to void - Exam General: Alert, Oriented HEENT: Pupils Equal Neck: Supple Lungs: Clear to Auscultation, Normal Respiratory Effort Cardiovascular: Regular Rate, Regular Rhythm GI/Abdominal Exam: Normal Bowel Sounds, Soft, Non-Tender, No Organomegaly, No Distention, No Abnormal Bruit, No Mass, Pelvis Stable Extremities: Normal Inspection, Normal Range of Motion, Non-Tender, No Pedal Edema, Normal Capillary Refill Skin: Warm, Dry, Intact Wound/Incisions: Healing Well Neurological: No New Focal Deficit Psy/Mental Status: Alert, Normal Affect, Normal Mood - Problem List Review Problem List Initiated/Reviewed/Updated: Yes - Assessment Assessment:: S/P doing well - Plan Plan:: Admit A: presenting to labor and delivery in active labor at 39 2/7 weeks ([place]: 08/28/21 by LMP and early ultrasound). Upon presentation, requesting epidural; SVE 6 cm per nurse report. O+, Rubella immune, GBS+ P: Anticipate ; epidural PRN; Dr. Lema updated. Deliver A: viable female; AROM immediately prior to delivery; clear fluid; epidural for pain relief; head delivered with good pushing; shoulders and body followed easily after; baby immediately to mom's abdomen [id number] for assessment; APGARs 8/9; cord doubly clamped after cessation of pulsing; cut by this provider; placenta delivered grossly intact, moreno, 3VC; EBL 200 mL; pitocin to IVF; small left-sided labial laceration repaired with 4-0 vicryl; mom and baby left in stable condition with nurse at bedside for assessment. Weight: 8 lb 6 oz P: Routine plan of care; Dr. Lema updated.
--- NOTE | 2021-08-24 10:24 | PCM.DCSUM1 ---
Discharge Summary - Hospital Course Diagnosis: Stroke: No - Discharge Data Discharge Date: 08/24/21 Discharge Disposition: Home, Self-Care 01 Condition: Good - Referral to Home Health Primary Care Physician: PCP None - Patient Instructions Diet: Usual Diet as Tolerated Activity: As Tolerated Driving: Do Not Drive Showering/Bathing: May Shower - Discharge Plan Home Medications: Home Meds Albuterol Sulfate [Proair Hfa] 8.5 gm IH 5XDAY PRN 02/22/17 [History] Amoxicillin 500 mg PO DAILY 02/22/17 [History] Amoxicillin/Clavulanate K [Augmentin 875 MG/125 MG] 1 tab PO Q12HR 02/22/17 [History] Sertraline [Zoloft] 100 mg PO DAILY 02/22/17 [History] Referrals: Betsy Barry CNM, [employer] [[facility]] - 10/04/21 2:00 pm (You may bring your with to your appointment. Masks are required.) - Discharge Summary/Plan Comment DC Time >30 min.: Yes Total # of Minutes for Discharge Time: 30 - Patient Data Vitals - Most Recent: Last Vital Signs Temp 36.5 C 08/24/21 07:59 Pulse 81 08/24/21 07:59 Resp 18 08/24/21 07:59 BP 112/67 08/24/21 07:59 Pulse Ox 94 L 08/24/21 07:59 Weight - Most Recent: 89.811 kg Lab Results - Last 24 hrs: Laboratory Results - last 24 hr 08/24/21 Range/Units 06:22 Hgb 11.0 L (12.0-16.0) g/dL Hct 34.0 L (36.0-46.0) % Med Orders - Current: Current Medications Acetaminophen (Acetaminophen 500 Mg Tab) 500 mg PO Q4H PRN PRN Reason: Pain (mild 1-3) Acetaminophen (Acetaminophen 500 Mg Tab) 1,000 mg PO Q4H PRN PRN Reason: Pain (mild 1-3) Last Admin: 08/24/21 08:31 Dose: 1,000 mg Documented by: Benzocaine/Menthol (Benzocaine/Menthol 20%-0.5% [place] 78 Gm Cannister) 78 gm TOP ASDIRECTED PRN PRN Reason: Perineal Comfort Measure Last Admin: 08/23/21 06:06 Dose: 1 spr Documented by: Bisacodyl (Bisacodyl 10 Mg Supp) 10 mg RECTAL ONETIME PRN PRN Reason: Constipation Docusate Sodium (Docusate Sodium 100 Mg Cap) 100 mg PO Q12H PRN PRN Reason: Constipation Last Admin: 08/24/21 08:32 Dose: 100 mg Documented by: Emollient Ointment (Lanolin 100% Cream 7 Gm Tube) 0 gm TOP ASDIRECTED PRN PRN Reason: Sore Nipples Last Admin: 08/23/21 07:51 Dose: 1 tube Documented by: Ibuprofen (Ibuprofen 400 Mg Tab) 400 mg PO Q4H PRN PRN Reason: Pain (mild 1-3) Ibuprofen (Ibuprofen 800 Mg Tab) 800 mg PO Q6H PRN PRN Reason: Cramping Last Admin: 08/23/21 20:12 Dose: 800 mg Documented by: Oxycodone HCl (Oxycodone 5 Mg Tab) 5 mg PO Q2H PRN PRN Reason: Pain (severe 7-10) Witch Lucy (Witch Lucy Medicated Pads 40/Jar) 1 pad TOP ASDIRECTED PRN PRN Reason: comfort care Last Admin: 08/23/21 06:05 Dose: 1 pad Documented by: Discontinued Medications Ampicillin Sodium (Ampicillin 1 Gm Vial) Confirm Administered Dose 2 gm .ROUTE .STK-MED ONE Stop: 08/23/21 02:22 Last Admin: 08/23/21 02:15 Dose: 2 gm Documented by: Bupivacaine HCl (Bupivacaine 0.25% 10 Ml Sdv) Confirm Administered Dose 20 ml .ROUTE .STK-MED ONE Stop: 08/23/21 03:10 Butorphanol Tartrate (Butorphanol 1 Mg/Ml Sdv) 1 mg IVPUSH Q1H PRN PRN Reason: Pain (severe 7-10) Carboprost Tromethamine (Carboprost Tromethamine 250 Mcg/1 Ml Amp) 250 mcg IM ASDIRECTED PRN PRN Reason: Post Hemorrhage Ephedrine Sulfate (Ephedrine 50 Mg/Ml Sdv) 10 mg IVPUSH Q1M PRN PRN Reason: Hypotension Lactated Ringer's (Ringers, Lactated) 1,000 mls @ 150 mls/hr IV ASDIRECTED ИРИНА Last Admin: 08/23/21 02:55 Dose: 150 mls/hr Documented by: Oxytocin/Sodium Chloride (Oxytocin 30 Unit In Ns 0.9% 500 Ml Premix) 30 unit in 500 mls @ 500 mls/hr IV TITRATE [facility] Last Admin: 08/23/21 04:35 Dose: 999 mls/hr Documented by: Tranexamic Acid 1,000 mg/ (Sodium Chloride) 110 mls @ 660 mls/hr IV ONETIME PRN PRN Reason: Bleeding Ropivacaine (Naropin 0.2%) Confirm Administered Dose 200 mls @ as directed .ROUTE .[facility]-MED ONE Stop: 08/23/21 03:09 Lidocaine HCl (Lidocaine 1% 50 Ml Mdv) 50 ml INJECT ONETIME PRN PRN Reason: Laceration repair Methylergonovine Maleate (Methylergonovine 0.2 Mg/1 Ml Amp) 0.2 mg IM ASDIRECTED PRN PRN Reason: Post Hemorrhage Miscellaneous Medication (Phenylephrine Hcl In 0.9% Nacl 1 Mg/10 Ml Syringe) 0.1 mg IVPUSH Q1M PRN PRN Reason: Hypotension Misoprostol (Misoprostol 200 Mcg Tab) 200 mcg PO ONETIME PRN PRN Reason: Post Hemorrhage Nalbuphine HCl (Nalbuphine 10 Mg/1 Ml Vial) 10 mg IVPUSH Q1H PRN PRN Reason: Pain (severe 7-10) Ondansetron HCl (Ondansetron 4 Mg/2 Ml Sdv) 4 mg IVPUSH Q4H PRN PRN Reason: Nausea/Vomiting Ropivacaine (Ropivacaine/Pf 400 Mg/200 Ml [employer]) 400 mg EPIDUR ASDIRECTED [facility] Sodium Chloride (Sodium Chloride 0.9% 10 Ml Syringe) 10 ml FLUSH ASDIRECTED PRN PRN Reason: Keep Vein Open Sodium Chloride (Sodium Chloride 0.9% 2.5 Ml Syringe) 2.5 ml FLUSH ASDIRECTED PRN PRN Reason: Keep Vein Open Sodium Chloride (Sodium Chloride 0.9% 10 Ml Sdv) 10 ml IV ASDIRECTED PRN PRN Reason: IV Use Sterile Water (Water For Irrigation,Sterile 1,000 Ml Container) 1,000 ml IRR ASDIRECTED PRN PRN Reason: delivery
== END 2021-08-24 12:15 | disposition home or self-care (01) | DRG 807 ==
LOC: MW.OBCHECK 01:51 → MW.OB 01:57 → UNDOADMOB 02:10 → MW.OBCHECK 02:10 → MW.OB 02:30 → OBSVTOIN 04:27 → MW.OB 09:01
PROVIDERS: ADMIT Obstetrics & Gynecology; ATTEND Obstetrics & Gynecology
PROC: 10E0XZZ Delivery of Products of Conception, External Approach (ICD-10-PCS; principal; 2021-08-23)
PROC: 10907ZC Drainage of Amniotic Fluid, Therapeutic from Products of Conception, Via Natural or Artificial Opening (ICD-10-PCS; 2021-08-23)
PROC: 3E0R3BZ Introduction of Anesthetic Agent into Spinal Canal, Percutaneous Approach (ICD-10-PCS; 2021-08-23)
PROC: 0HQ9XZZ Repair Perineum Skin, External Approach (ICD-10-PCS; 2021-08-23)
PROC: 00HU33Z Insertion of Infusion Device into Spinal Canal, Percutaneous Approach (ICD-10-PCS; 2021-08-23)
DX: O99.824 Streptococcus B carrier state complicating childbirth (principal); Z37.0 Single live birth; Z3A.39 39 weeks gestation of pregnancy; O70.0 First degree perineal laceration during delivery; Z20.822 Contact with and (suspected) exposure to COVID-19
CPT/HCPCS: 36415; 59025; 59409; 59414; 85014; 85018; 85027; 86592; 86850; 86900; 86901; A9270-GY; J0290; J2590; J2795; J3490; J7120; U0002